=== PATIENT | female | born 1995 | race Caucasian/White ===

== ENCOUNTER 2019-05-15 12:17 | Emergency (ER) | payer MEDICAID ==
[~2019-05-15] VITALS: Ht 162.6 cm; Wt 58.2 kg
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
[2019-05-15 13:13] LABS: ALANINE AMINOTRANSFERASE 24 U/L (12-78); ALBUMIN 3.6 g/dL (3.4-5.0); ANION GAP 8 mmol/L (5-15); CALCIUM 8.1 mg/dL (8.5-10.1); CHLORIDE 107 mmol/L (98-107); CREATININE 0.57 mg/dL (0.55-1.02)
[2019-05-15 13:15] LABS: ALKALINE PHOSPHATASE 67 U/L (45-117); BILIRUBIN,TOTAL 1.3 mg/dL (0.2-1.0); MEAN CORPUSCULAR HEMOGLOBIN 19.7 pg (27.0-34.8); MEAN CORPUSCULAR HGB CONC 30.7 g/dL (32.4-35.8); MEAN CORPUSCULAR VOLUME 64.2 fL (80-100); MEAN PLATELET VOLUME 10.2 fL (7.4-10.4); PLATELET COUNT 351 x10^3/uL (130-400); TOTAL PROTEIN 7.7 g/dL (6.4-8.2)
[2019-05-15 13:29] LABS: BASOPHILS # (AUTO) 0.02 x10^3/uL (0-0.1); BASOPHILS % (AUTO) 0 % (0-1); EOSINOPHILS # (AUTO) 0.03 x10^3/uL (0-0.4); EOSINOPHILS % (AUTO) 1 % (1-7); LYMPHOCYTES # (AUTO) 1.48 x10^3/uL (1-3.4); LYMPHOCYTES % (AUTO) 24 % (22-44); MD MORPH REVIEW ONLY; MONOCYTES # (AUTO) 0.43 x10^3/uL (0.2-0.8); MONOCYTES % (AUTO) 7 % (2-9); NEUTROPHILS # (AUTO) 4.25 x10^3/uL (1.8-6.8); NEUTROPHILS % (AUTO) 68 % (42-75)
[2019-05-15 13:30] LABS: <PLATELET ESTIMATE> ADEQUATE; <PLT MORPHOLOGY> NORMAL PLT MORPH; ANISOCYTOSIS 1+; HYPOCHROMIA 1+; MICROCYTOSIS 1+; OVALOCYTES 1+
--- NOTE | 2019-05-15 13:33 | NUR ---
ALL TESTS PERFORMED, AWAITING RESULTS. PT COMFORTABLE AT THIS TIME. WILL CONTINUE TO MONITOR.
--- NOTE | 2019-05-15 14:01 | NUR ---
PA IN TO PERFORM GUIAC STUDY. BETA HCG ADDED TO ALREADY DRAWN LAB. WILL CONTINUE TO MONITOR PATIENT.
--- NOTE | 2019-05-15 14:46 | NUR ---
PT TO CT PER WHEELCHAIR. PRIOR TO LEAVING, PT UP AMBULATING TO BR WITH STRONG STEADY GAIT.
--- NOTE | 2019-05-15 15:30 | NUR ---
DISCHARGE INSTRUCTIONS GIVEN TO PATIENT. PT VERBALIZES UNDERSTANDING OF ALL INSTRUCTIONS AND FOLLOW UP. PT AMBULATED OUT OF ED WITH CHILD. PT HAS STRONG STEADY GAIT
[2019-05-15 15:31] VITALS: BP 107/66
== END 2019-05-15 15:36 | disposition home or self-care (01) ==
LOC: ED 15:20
DX: M25.552 Pain in left hip (principal); D53.9 Nutritional anemia, unspecified; G89.29 Other chronic pain; F17.200 Nicotine dependence, unspecified, uncomplicated; G40.909 Epilepsy, unspecified, not intractable, without status epilepticus
CPT/HCPCS: 36415; 72170; 72192; 80053; 84703; 85025; 99285

== ENCOUNTER 2019-06-26 14:01 | Emergency (ER) | payer MEDICAID ==
[~2019-06-26] VITALS: Ht 162.6 cm; Wt 57.3 kg
[2019-06-26 14:03] VITALS: BP 139/82
[2019-06-26] MEDS ORDERED: LORazepam 1MG TABLET PO ONE (14:30)
[2019-06-26] MEDS ORDERED: LORazepam 1MG TABLET ONE (14:44)
--- NOTE | 2019-06-26 14:47 | NUR ---
PT STATES THAT HER MEDICATIONS WERE TAKEN BY HER EX. SHE WOULD LIKE A REFILL OF HER ANTISEIZURE MEDICATION. PROVIDED PT WITH A URINE CUP AND INSTRUCTIONS FOR CLEAN CATCH. PT VERBALIZES UNDERSTANDING. CALL LIGHT IN REACH.
[2019-06-26 14:56] LABS: BASOPHILS % (AUTO) 0 % (0-1); EOSINOPHILS # (AUTO) 0.02 x10^3/uL (0-0.4); EOSINOPHILS % (AUTO) 0 % (1-7); LYMPHOCYTES # (AUTO) 2.12 x10^3/uL (1-3.4); LYMPHOCYTES % (AUTO) 24 % (22-44); MD MORPH REVIEW ONLY; MEAN CORPUSCULAR HEMOGLOBIN 20.6 pg (27.0-34.8); MEAN CORPUSCULAR HGB CONC 30.9 g/dL (32.4-35.8); MEAN CORPUSCULAR VOLUME 66.7 fL (80-100); MEAN PLATELET VOLUME 8.8 fL (7.4-10.4); MONOCYTES # (AUTO) 0.56 x10^3/uL (0.2-0.8); MONOCYTES % (AUTO) 6 % (2-9); NEUTROPHILS # (AUTO) 5.98 x10^3/uL (1.8-6.8); NEUTROPHILS % (AUTO) 69 % (42-75); PLATELET COUNT 305 x10^3/uL (130-400); RED BLOOD COUNT 5.07 x10^6/uL (3.82-5.3); RED CELL DISTRIBUTION WIDTH 23.1 % (9.6-15.2)
--- NOTE | 2019-06-26 15:00 | NUR ---
SEIZURE PADS APPLIED TO BEDRAILS. PT STATES THAT SHE IS UNABLE TO PROVIDE A URINE SAMPLE AT THIS TIME. GIVEN WATER PER REQUEST. DENIES ANY FURTHER NEEDS OR CONCERNS AT THIS TIME. CALL LIGHT IN REACH.
[2019-06-26 15:06] LABS: ALBUMIN 3.8 g/dL (3.4-5.0); ANION GAP 4 mmol/L (5-15); CHLORIDE 107 mmol/L (98-107); CREATININE 0.65 mg/dL (0.55-1.02)
[2019-06-26 15:07] LABS: ANISOCYTOSIS 1+; MICROCYTOSIS 1+; OVALOCYTES 1+
[2019-06-26 15:08] LABS: <PLATELET ESTIMATE> ADEQUATE; <PLT MORPHOLOGY> NORMAL PLT MORPH
--- NOTE | 2019-06-26 15:12 | NUR ---
PT UP TO RESTROOM AT THIS TIME TO PROVIDE URINE SAMPLE.
--- NOTE | 2019-06-26 15:19 | NUR ---
REPORT RECEIVED FROM KATIA GÓMEZ. URINE COLLECTED AND SENT TO LAB.
[2019-06-26 15:37] LABS: MICROSCOPIC AUTO
[2019-06-26 15:45] LABS: CULTURE INDICATED? YES
--- NOTE | 2019-06-26 15:54 | NUR ---
ALL TESTS RESULTED. PT IS UP FOR RECHECK AT THIS TIME.
--- NOTE | 2019-06-26 16:14 | NUR ---
Patient given discharge instructions and they have confirmed that they understand the instructions. Patient ambulatory with steady gait.
== END 2019-06-26 16:40 | disposition home or self-care (01) ==
LOC: ED 14:25
DX: N30.00 Acute cystitis without hematuria (principal); F41.1 Generalized anxiety disorder; G40.909 Epilepsy, unspecified, not intractable, without status epilepticus; R00.0 Tachycardia, unspecified
CPT/HCPCS: 36415; 80048; 81001; 82040; 85025; 87086; 93005; 99284

== ENCOUNTER 2020-10-30 09:02 | Outpatient (CLI) | payer MEDICAID ==
[~2020-10-30] VITALS: Ht 162.6 cm; Wt 65.4 kg
[2020-10-30 09:40] VITALS: BP 139/73
[2020-10-30 10:14] LABS: MICROSCOPIC INDICATED
[2020-10-30] MEDS ORDERED: PREN1TAB10 PO (10:37)
== END 2020-10-30 11:27 | disposition home or self-care (01) ==
LOC: LDOP 09:02
PROVIDERS: ATTEND Obstetrics & Gynecology
DX: O26.893 Other specified pregnancy related conditions, third trimester (principal); O34.219 Maternal care for unspecified type scar from previous cesarean delivery; R10.9 Unspecified abdominal pain; Z3A.38 38 weeks gestation of pregnancy
CPT/HCPCS: 59025; 76815; 81001